=== PATIENT | female | born 1965 | race Caucasian/White ===

== ENCOUNTER 2016-08-21 15:50 | Inpatient (IN) | payer BC, OTHER ==
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
--- NOTE | ~2016-08-21 | DS ---
Discharge Summary [facility] [address] [place]. [address] NAME: NEELAM FINLEY : 65 STATUS : DIS IN PAT#: [id number] AGE: 51 ADM/REG DATE : 08/21/16 MR#: [id number] REPORT SERV DATE: 09/02/16 DICTATED BY: GODWIN DE LA CRUZ DATE: 09/01/16 REPORT STATUS : Draft TRANSCRIBED BY: MODL DATE: 09/01/16 ADMISSION DATE: 08/21/2016 DISCHARGE DATE: 09/01/2016 REASON FOR ADMISSION: Recurrent pneumonia, concern for aspiration. HISTORY OF PRESENT ILLNESS: Please refer Dr. Cooley's history and physical dated 08/02/2016 for complete details on the patient's admission. In brief, the patient was recently discharged from [facility] with a pneumonia and now rehospitalized with another pneumonia. HOSPITAL COURSE: From admission to September 20, please refer Dr. Jay Shah's discharge dictation. During that time, Dr. Shah had diagnosed with bilateral pneumonia with bacteremia secondary to aspiration and hypoxic respiratory failure which is now resolved. She also had dysphagia. She was initially scheduled for discharge on the , however we were waiting for home health and tube feeds to be arranged prior to discharge which hopefully will be done today. I assume care of this patient on the day of discharge. There were no overnight events. She will be discharged home in a stable condition. DISCHARGE DIAGNOSES: Bilateral pneumonia with bacteremia secondary to aspiration, hypoxic respiratory failure, dysphagia, severe esophageal candidiasis, history of type 2 diabetes, history of peripheral arterial disease, chronic pain management. DISCHARGE MEDICATIONS: Please refer to Dr. Pina Shah's discharge summary for complete details regarding the procedures and medications. This is Dr. Godwin De La Cruz spending over 30 minutes on discharge planning and coordination of care on Ms. Finley. ANTHONY/ALAYNA Godwin De La Cruz MD / [id number] CC: MD Landon Briscoe MD
--- NOTE | ~2016-08-21 | EGD ---
EGD REPORT [facility] [address] [place] [address] NAME: BRIT FINLEY : 65 STATUS : ADM IN PAT#: [id number] AGE: 51 ADM/REG DATE : 08/21/16 MR#: [id number] REPORT SERV DATE: 08/28/16 DICTATED BY: JENNIFER POLK DATE: 08/28/16 REPORT STATUS : Draft TRANSCRIBED BY: [employer] DATE: 08/28/16 [facility] Patient Name: Brit Finley Date of : 1965 Attending MD: JENNIFER POLK, Procedure Date No Time: 08/28/2016 Procedure: Upper GI endoscopy Indications: Dysphagia Referring MD: Landon Mueller MD Medicines: Monitored Anesthesia Care Complications: No immediate complications. Estimated blood loss: None. Procedure: Pre-Anesthesia Assessment: - ASA Grade Assessment: IV - A patient with severe systemic disease that is a constant threat to life. After obtaining informed consent, the endoscope was passed under direct vision. Throughout the procedure, the patient's blood pressure, pulse, and oxygen saturations were monitored continuously. The GIF H190 [id number] was introduced through the mouth, and advanced to the second part of duodenum. The upper GI endoscopy was accomplished without difficulty. The patient tolerated the procedure well. Findings: The esophagus was normal. The stomach was normal. The patient was placed in the supine position for PEG placement. The stomach was insufflated to appose gastric and abdominal chiu. A site was located in the body of the stomach with excellent transillumination and manual external pressure for placement. The abdominal wall was marked and prepped in a sterile manner. The area was anesthetized with 3 mL of 1% lidocaine. The trocar needle was introduced through the abdominal wall and into the stomach under direct endoscopic view. A snare was introduced through the endoscope and opened in the gastric lumen. The guide wire was passed through the trocar and into the open snare. The snare was closed around the guide wire. The endoscope and snare were removed, pulling the wire out through the mouth. A skin incision was made at the site of needle insertion. The externally removable 24 Fr EndoVive Safety gastrostomy tube was lubricated. The G-tube was passed over the guide wire through the mouth, and into the stomach. The trocar needle was removed, and the gastrostomy tube was pulled out from the stomach through the skin. The guide wire was removed, and the external bumper attached to the gastrostomy tube. The feeding tube was then cut to an appropriate length. The final position of the gastrostomy tube was confirmed by relook endoscopy, and skin marking noted to be 3 cm at the external bumper. The final tension EGD REPORT [address] [place]. [address] NAME: BIRT FINLEY : 65 STATUS : ADM IN [facility]#: [id number] AGE: 51 ADM/REG DATE : 08/21/16 MR#: [id number] REPORT SERV DATE: 08/28/16 DICTATED BY: JENNIFER POLK DATE: 08/28/16 REPORT STATUS : Draft TRANSCRIBED BY: [employer] DATE: 08/28/16 and compression of the abdominal wall by the PEG tube and external bumper were checked and revealed that the bumper was loose and not touching the skin. The feeding tube was capped, and the tube site was cleaned and dressed. The examined duodenum was normal. Impression: - Normal esophagus. - Normal stomach. - Normal examined duodenum. - An externally removable PEG placement was successfully completed. Recommendation: - Patient has a contact number available for emergencies. The signs and symptoms of potential delayed complications were discussed with the patient. Return to normal activities tomorrow. Written discharge instructions were provided to the patient. - Return to previous diet. - Continue present medications. - Please follow the post-PEG recommendations including: Nutrition consult for formula and volume. - Please follow the post-PEG recommendations including: NPO x4 hrs then water today, may use PEG today for meds and water and may use PEG tomorrow for feedings. Procedure Code(s): --- Professional --- 01051, Esophagogastroduodenoscopy, flexible, transoral; with directed placement of percutaneous gastrostomy tube Diagnosis Code(s): --- Professional --- R13.10, Dysphagia, unspecified CPT copyright 2013 [employer]. All rights reserved. The codes documented in this report are preliminary and upon bobtailer review may be revised to meet current compliance requirements. JENNIFER POLK, 08/28/2016 3:08 PM Number of Addenda: 0 Note Initiated On: 08/28/2016 11:07 AM Scope Withdrawal Time 0 hours 0 minutes 0 seconds [address] [place] [address]
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
--- NOTE | ~2016-08-21 | EGD ---
EGD REPORT [facility] [address] [place] [place] [address] NAME: BRIT FINLEY : 65 STATUS : ADM IN PAT#: [id number] AGE: 51 ADM/REG DATE : 08/21/16 MR#: [id number] REPORT SERV DATE: 08/25/16 DICTATED BY: BRANDON OLSON DATE: 08/25/16 REPORT STATUS : Draft [facility]ANSCRIBED BY: [facility] DATE: 08/25/16 [facility] Patient Name: Brit Finley Date of : 1965 Attending MD: BRANDON OLSON MD Procedure Date No Time: 08/25/2016 Procedure: Upper GI endoscopy Indications: Dysphagia Referring MD: NIEVES BREWSTER MD Medicines: Monitored Anesthesia Care Complications: No immediate complications. Estimated blood loss: Minimal. Procedure: Pre-Anesthesia Assessment: - ASA Grade Assessment: III - A patient with severe systemic disease. After obtaining informed consent, the endoscope was passed under direct vision. Throughout the procedure, the patient's blood pressure, pulse, and oxygen saturations were monitored continuously. The GIF H190 [id number] was introduced through the mouth, and advanced to the second part of duodenum. The upper GI endoscopy was accomplished without difficulty. The patient tolerated the procedure well. Findings: Moderately severe esophagitis with no bleeding was found in the entire esophagus. Cells for cytology were obtained by brushing. Estimated blood loss: none. No gross lesions were noted in the entire examined stomach. The examined duodenum was normal. The cardia and gastric fundus were normal on retroflexion. The exam was otherwise without abnormality. Impression: - Moderately severe candidiasis esophagitis. Cells for cytology obtained. - The examination was otherwise normal. - Cells for cytology were obtained. Recommendation: - Return patient to [facility] for [facility] care. - Await pathology results. - Diflucan (fluconazole) 100 mg PO daily for 3 weeks. Procedure Code(s): --- Professional --- 05915, Esophagogastroduodenoscopy, flexible, transoral; diagnostic, including collection of specimen(s) by EGD REPORT [address] [address] NAME: BRIT FINLEY : [birth year] STATUS : ADM IN [facility]#: [id number] AGE: 51 ADM/REG DATE : 08/21/16 MR#: [id number] REPORT SERV DATE: 08/25/16 DICTATED BY: BRANDON OLSON DATE: 08/25/16 REPORT STATUS : Draft TRANSCRIBED BY: [employer] DATE: 08/25/16 brushing or washing, when performed (separate procedure) Diagnosis Code(s): --- Professional --- B37.81, Candidal esophagitis R13.10, Dysphagia, unspecified CPT copyright 2013 [employer]. All rights reserved. The codes documented in this report are preliminary and upon neurology director review may be revised to meet current compliance requirements. Brandon Olson MD BRANDON OLSON MD 08/25/2016 8:39 AM This report has been signed electronically. Number of Addenda: 0 Note Initiated On: 08/25/2016 7:11 AM Scope Withdrawal Time 0 hours 0 minutes 0 seconds
[~2016-08-21 15:50] MED LIST: ASABAYER PO; AVINZA30 PO; B121000P IM; CLARIT10 PO; CLOBETASOL E0.05 % EX; CRESTOR20 MG PO; CYMBALTA60 PO; FOLIC ACID400 MC1 PO; INVOKAMET PO; LEVEMIR SC; LOFIB160 PO; MULTIPLE VIT PO; MYRBETRIQ50 MG PO; NEUR800 PO; PERCOCET1 TA4 PO; TOPXL50 PO; V5 PO; VITAMIN D2000 UNIT PO; ZANAFLEX2 MG PO; ZESTRIL20 MG PO
[2016-08-21 16:01] LABS: BASOPHILS 0.1 %; BASOPHILS ABSOLUTE 0.01 10/3/uL (0.0-0.16); EOSINOPHILS 0.1 %; EOSINOPHILS ABSOLUTE 0.01 10/3/uL (0.0-0.53); ER CBC TAT 0 Hrs 18 Mins; HEMATOCRIT 31.9 % (36.0-48.0); HEMOGLOBIN 10.7 g/dL (12.0-16.0); IMMATURE GRANULOCYTES 0.3 %; IMMATURE GRANULOCYTES ABSOLUTE 0.03 10/3/uL (0.0-0.11); LYMPHOCYTES ABSOLUTE 0.58 10/3/uL (0.67-4.30); MANUAL DIFF NO %; MEAN CORPUS HGB CONC 33.5 g/dL (32.0-36.0); MEAN CORPUSCULAR HEMOGLOB 27.4 pg (26.0-34.0); MEAN CORPUSCULAR VOLUME 81.8 fL (80-100); MEAN PLATELET VOLUME 8.8 fL (9.2-13.0); MONOCYTES 6.4 %; MONOCYTES ABSOLUTE 0.74 10/3/uL (0.21-1.20); NEUTROPHILS 88.1 %; NEUTROPHILS ABSOLUTE 10.18 10/3/uL (2.02-8.40); PLATELET COUNT 343 10/3/uL (150-400); RBC DISTRIBUTION WIDTH 16.2 % (12.0-16.0); WHITE BLOOD CELLS 11.6 10/3/uL (4.5-10.5)
[2016-08-21 16:08] LABS: BUN (BLOOD UREA NITROGEN) 9 MG/DL (6-23); CHLORIDE, SERUM 99 MMOL/L (96-112); CO2 (CARBON DIOXIDE) 25 MMOL/L (24-34); GFR AFRICAN AMERICAN 116 ML/MIN (>=60); GFR NON AFRICAN AMERICAN 100 ML/MIN (>=60); GLUCOSE, SERUM 174 MG/DL (60-99); SODIUM, SERUM 135 MMOL/L (135-148)
[2016-08-21 16:09] LABS: INFLUENZA A SCREEN NEGATIVE (NEGATIVE); INFLUENZA B SCREEN NEGATIVE (NEGATIVE)
[2016-08-21 16:10] LABS: CALCIUM, SERUM 7.7 MG/DL (8.5-10.4)
[2016-08-21 16:15] LABS: ASCORBIC ACID (UR NOT ORDER) NEG (NEG); BILIRUBIN, URINE NEGATIVE (NEG); ER URINALYSIS TAT 0 Hrs 09 Mins; KETONE, URINE NEGATIVE (NEG); LEUKOCYTE ESTERASE(NOT OR TRACE (NEG); NITRITE (URINE) NEG (NEG); WBC (NOT ORDERED) (RFLEX) 15 (0-5)
[2016-08-21 16:15] LABS: LACTATE 1.6 MMOL/L (0.3-2.4)
[2016-08-21 16:41] LABS: PROCALCITONIN 0.17 ng/mL (<0.5)
[2016-08-21] MEDS ORDERED: ZANAFLEX 4 MG TA4 MG PO (17:14)
[2016-08-21] MEDS ORDERED: SEROQUEL25 PO (17:14)
[2016-08-21] MEDS ORDERED: OSPHENA60 MG PO (17:15)
[2016-08-21] MEDS ORDERED: MOVANTIK25 MG PO (17:16)
[2016-08-21] MEDS ORDERED: COZAAR100 MG PO (17:16)
[2016-08-21] MEDS ORDERED: CRESTOR20 MG PO (17:17)
[2016-08-21] MEDS ORDERED: PULMICORT180 MCG INH (17:17)
[2016-08-21] MEDS ORDERED: TESS PO (17:17)
[2016-08-21] MEDS ORDERED: NORV5 PO (17:18)
[2016-08-21] MEDS ORDERED: CYMBALTA60 PO (17:18)
[2016-08-21] MEDS ORDERED: LOPID6 PO (17:18)
[2016-08-21] MEDS ORDERED: ATARAX50B PO (17:19)
[2016-08-21] MEDS ORDERED: ZYRTEC ALLGY10 MG PO (17:19)
[2016-08-21] MEDS ORDERED: PROAIR HFA INH (17:20)
[2016-08-21] MEDS ORDERED: ENDOCET1 TA3 PO (17:20)
[2016-08-21] MEDS ORDERED: MSCONT60 PO (17:23)
[2016-08-21] MEDS ORDERED: ASAB PO (17:23)
[2016-08-21] MEDS ORDERED: VITAMIN D31000 UNIT PO (17:24)
[2016-08-21] MEDS ORDERED: B121000P IM (17:24)
[2016-08-21] MEDS ORDERED: TEMOVATE CREAM30 GM TOP (17:24)
[2016-08-21] MEDS ORDERED: JANUMET1 TA1 PO (17:26)
[2016-08-21] MEDS ORDERED: TOUJEO SC (17:26)
[2016-08-21] MEDS ORDERED: FOLIC PO (17:26)
[2016-08-21] MEDS ORDERED: NOVOPEN SC (17:27)
[2016-08-21] MEDS ORDERED: MULTIVIT/MIN PO (17:28)
[2016-08-21] MEDS ORDERED: BEN25 PO (17:29)
[2016-08-21] MEDS ORDERED: HABIT21 TOP (17:30)
[2016-08-21] MEDS ORDERED: FLONASE NAS (17:30)
[2016-08-21] MEDS ORDERED: LEVAQUIN750 MG PO (17:32)
[2016-08-21] MEDS ORDERED: [UNRECOGNIZED DRUG - OTHER] (17:33)
[2016-08-21 20:17] LABS: TROPONIN I 0.02 NG/ML (<0.05)
[2016-08-21 21:38] LABS: B NATRIURETIC PEPTIDE (BNP) 84.2 PG/ML (< 100.0)
[2016-08-21 21:51] LABS: FREE T4 1.19 NG/DL (0.76-1.46)
[2016-08-21 22:13] LABS: GLYCOHEMOGLOBIN (HbA1c) 8.3 % (4.7-6.1)
[2016-08-22 06:54] LABS: HEMATOCRIT 28.9 % (36.0-48.0); HEMOGLOBIN 9.5 g/dL (12.0-16.0); MEAN CORPUS HGB CONC 32.9 g/dL (32.0-36.0); MEAN CORPUSCULAR VOLUME 82.1 fL (80-100); MEAN PLATELET VOLUME 8.3 fL (9.2-13.0); PLATELET COUNT 291 10/3/uL (150-400); RBC DISTRIBUTION WIDTH 16.5 % (12.0-16.0); RED CELL COUNT 3.52 10/6/uL (4.0-5.6); WHITE BLOOD CELLS 9.6 10/3/uL (4.5-10.5)
[2016-08-22 06:55] LABS: MANUAL DIFF YES %
[2016-08-22 07:09] LABS: A/G RATIO 0.5 (0.7-1.9); ALBUMIN 1.8 G/DL (3.5-5.0); ALKALINE PHOSPHATASE 85 U/L (45-117); BUN (BLOOD UREA NITROGEN) 6 MG/DL (6-23); CALCIUM, SERUM 7.7 MG/DL (8.5-10.4); CHLORIDE, SERUM 105 MMOL/L (96-112); CO2 (CARBON DIOXIDE) 26 MMOL/L (24-34); CREATININE 0.52 MG/DL (0.55-1.02); GFR AFRICAN AMERICAN 128 ML/MIN (>=60); GFR NON AFRICAN AMERICAN 111 ML/MIN (>=60); GLUCOSE, SERUM 93 MG/DL (60-99); POTASSIUM, SERUM 3.7 MMOL/L (3.5-5.3); SGOT(AST) 9 U/L (5-40); SGPT(ALT) 10 U/L (5-65); SODIUM, SERUM 140 MMOL/L (135-148); TOTAL BILIRUBIN 0.7 MG/DL (0-1.2); TOTAL PROTEIN 5.8 G/DL (6.0-8.5); TROPONIN I 0.02 NG/ML (<0.05)
[2016-08-22 07:35] LABS: ANISOCYTOSIS 1+ (5-10/OIF) (0-5/OIF); BAND NEUTROPHILS 14 %; LYMPHOCYTES 8 %; LYMPHOCYTES ABSOLUTE (CALC) 0.77 10/3/uL (0.67-4.30); MONOCYTES 4 %; MONOCYTES ABSOLUTE (CALC) 0.38 10/3/uL (0.21-1.20); NEUTROPHILS ABSOLUTE (CALC) 8.45 10/3/uL (2.02-8.40); PLATELET ESTIMATE ADQ (ADEQUATE); SEGMENTED NEUTROPHIL (0) 74 %; TOTAL NUCLEATED CELLS 100
[2016-08-25 05:07] LABS: BASOPHILS 0.2 %; BASOPHILS ABSOLUTE 0.02 10/3/uL (0.0-0.16); EOSINOPHILS 0.1 %; EOSINOPHILS ABSOLUTE 0.01 10/3/uL (0.0-0.53); HEMATOCRIT 33.5 % (36.0-48.0); HEMOGLOBIN 11.4 g/dL (12.0-16.0); IMMATURE GRANULOCYTES 0.7 %; IMMATURE GRANULOCYTES ABSOLUTE 0.08 10/3/uL (0.0-0.11); LYMPHOCYTES 34.5 %; LYMPHOCYTES ABSOLUTE 3.71 10/3/uL (0.67-4.30); MANUAL DIFF NO %; MEAN CORPUSCULAR HEMOGLOB 27.6 pg (26.0-34.0); MEAN CORPUSCULAR VOLUME 81.1 fL (80-100); MEAN PLATELET VOLUME 8.6 fL (9.2-13.0); MONOCYTES 5.9 %; MONOCYTES ABSOLUTE 0.63 10/3/uL (0.21-1.20); NEUTROPHILS 58.6 %; NEUTROPHILS ABSOLUTE 6.29 10/3/uL (2.02-8.40); PLATELET COUNT 331 10/3/uL (150-400); RBC DISTRIBUTION WIDTH 16.6 % (12.0-16.0); RED CELL COUNT 4.13 10/6/uL (4.0-5.6); WHITE BLOOD CELLS 10.7 10/3/uL (4.5-10.5)
[2016-08-25 05:10] LABS: INTERNATIONAL NORMAL RATI 1.1 UNITS (-)
[2016-08-25 05:37] LABS: BUN (BLOOD UREA NITROGEN) 7 MG/DL (6-23); CALCIUM, SERUM 8.5 MG/DL (8.5-10.4); CHLORIDE, SERUM 102 MMOL/L (96-112); CO2 (CARBON DIOXIDE) 26 MMOL/L (24-34); GFR AFRICAN AMERICAN 122 ML/MIN (>=60); GFR NON AFRICAN AMERICAN 106 ML/MIN (>=60); POTASSIUM, SERUM 3.7 MMOL/L (3.5-5.3); SODIUM, SERUM 139 MMOL/L (135-148)
[2016-08-25 05:38] LABS: GLUCOSE, SERUM 170 MG/DL (60-99)
[2016-08-25 16:17] LABS: PROCALCITONIN 0.19 ng/mL (<0.5)
[2016-08-27 21:25] LABS: CREATININE 0.3 MG/DL (0.55-1.02)
[2016-08-28 05:57] LABS: C-REACTIVE PROTEIN 5.3 MG/L (<8.0)
[2016-08-28 06:32] LABS: TOTAL BILIRUBIN 0.3 MG/DL (0-1.2); TOTAL PROTEIN 5.6 G/DL (6.0-8.5)
[2016-08-28 06:33] LABS: ALBUMIN 2.2 G/DL (3.5-5.0); DIRECT BILIRUBIN 0.1 MG/DL (0.0-0.4); FOLATE 29.7 NG/ML (>5.2); INDIRECT BILIRUBIN(NOT ORDER) 0.2 MG/DL (0.1-0.9)
[2016-08-28 18:53] LABS: HEMATOCRIT 33.7 % (36.0-48.0)
[2016-08-28 19:06] LABS: BUN (BLOOD UREA NITROGEN) 6 MG/DL (6-23); CALCIUM, SERUM 7.6 MG/DL (8.5-10.4); CHLORIDE, SERUM 107 MMOL/L (96-112); CO2 (CARBON DIOXIDE) 24 MMOL/L (24-34); CREATININE 0.43 MG/DL (0.55-1.02); GFR AFRICAN AMERICAN 136 ML/MIN (>=60); GFR NON AFRICAN AMERICAN 118 ML/MIN (>=60); GLUCOSE, SERUM 167 MG/DL (60-99); POTASSIUM, SERUM 3.3 MMOL/L (3.5-5.3); SODIUM, SERUM 142 MMOL/L (135-148)
[2016-08-30 10:41] LABS: BASOPHILS 0.1 %; BASOPHILS ABSOLUTE 0.01 10/3/uL (0.0-0.16); EOSINOPHILS 1.2 %; EOSINOPHILS ABSOLUTE 0.13 10/3/uL (0.0-0.53); HEMATOCRIT 33.2 % (36.0-48.0); IMMATURE GRANULOCYTES ABSOLUTE 0.11 10/3/uL (0.0-0.11); LYMPHOCYTES 25.4 %; LYMPHOCYTES ABSOLUTE 2.75 10/3/uL (0.67-4.30); MEAN CORPUS HGB CONC 33.1 g/dL (32.0-36.0); MEAN CORPUSCULAR HEMOGLOB 27.6 pg (26.0-34.0); MEAN CORPUSCULAR VOLUME 83.4 fL (80-100); MEAN PLATELET VOLUME 8.2 fL (9.2-13.0); MONOCYTES 3.5 %; MONOCYTES ABSOLUTE 0.38 10/3/uL (0.21-1.20); NEUTROPHILS 68.8 %; NEUTROPHILS ABSOLUTE 7.43 10/3/uL (2.02-8.40); PLATELET COUNT 398 10/3/uL (150-400); RBC DISTRIBUTION WIDTH 17.7 % (12.0-16.0); RED CELL COUNT 3.98 10/6/uL (4.0-5.6); WHITE BLOOD CELLS 10.8 10/3/uL (4.5-10.5)
[2016-08-30 10:42] LABS: MANUAL DIFF NO %
[2016-08-30 10:54] LABS: BUN (BLOOD UREA NITROGEN) 5 MG/DL (6-23); CALCIUM, SERUM 8.1 MG/DL (8.5-10.4); CHLORIDE, SERUM 104 MMOL/L (96-112); CO2 (CARBON DIOXIDE) 29 MMOL/L (24-34); CREATININE 0.41 MG/DL (0.55-1.02); GFR AFRICAN AMERICAN 139 ML/MIN (>=60); GFR NON AFRICAN AMERICAN 120 ML/MIN (>=60); GLUCOSE, SERUM 188 MG/DL (60-99); POTASSIUM, SERUM 3.5 MMOL/L (3.5-5.3); SODIUM, SERUM 142 MMOL/L (135-148)
[2016-08-31 09:39] LABS: ALDOLASE 3.9 U/L (1.2-7.6)
[2016-08-31 17:34] LABS: POTASSIUM, SERUM 3.6 MMOL/L (3.5-5.3)
[2016-09-01] MEDS ORDERED: FLUCON1 PO (09:31)
[2016-09-01] MEDS ORDERED: MSIMMR15 PO (11:53)
[2016-09-01] MEDS ORDERED: LOP25 PO (11:53)
[2016-09-02 05:36] LABS: ACH RECEPTOR BINDING AB <0.30 nmol/L (<0.31)
== END 2016-09-01 17:20 | disposition home health service (06) | DRG 871 ==
LOC: ER 15:50 → 7NO 19:53
PROVIDERS: Emergency Medicine; Hospitalist; Internal Medicine; Internal Medicine Gastroenterology; Nurse Practitioner; Nurse Practitioner Family
PROC: 0DB58ZX Excision of Esophagus, Via Natural or Artificial Opening Endoscopic, Diagnostic (ICD-10-PCS; principal; 2016-08-25 08:30)
PROC: 0DH63UZ Insertion of Feeding Device into Stomach, Percutaneous Approach (ICD-10-PCS; 2016-08-28)
DX: A41.89 Other specified sepsis (principal); J69.0 Pneumonitis due to inhalation of food and vomit; J96.91 Respiratory failure, unspecified with hypoxia; R13.12 Dysphagia, oropharyngeal phase; B37.81 Candidal esophagitis; E11.9 Type 2 diabetes mellitus without complications; J44.9 Chronic obstructive pulmonary disease, unspecified; F17.210 Nicotine dependence, cigarettes, uncomplicated; Z79.4 Long term (current) use of insulin; G89.29 Other chronic pain; R65.20 Severe sepsis without septic shock; Z88.0 Allergy status to penicillin; I73.9 Peripheral vascular disease, unspecified
CPT/HCPCS: 70544; 70547; 70553; 71010; 71250; 72156; 72157; 74000; 74230; 80048; 80053; 80061; 80076; 81001; 82085; 82140; 82306; 82533; 82550; 82607; 82746; 82962; 83036; 83519; 83605; 83735; 83880; 84132; 84145; 84439; 84443; 84484; 84703; 85014; 85018; 85025; 85610; 85652; 86140; 87040; 87070; 87077; 87150; 87186; 87205; 87210; 87449; 87641; 87804; 92611-GN; 93005; 93880; 94640; 96374; 96375; 99291; A9270-GY; A9577; C8929; C9113; J0360; J0456; J1450; J2405; J3370; Q9957

== ENCOUNTER 2016-10-08 11:43 | Emergency (ER) | payer BC, OTHER ==
[~2016-10-08 11:43] MED LIST changes: +ASAB PO; +ATARAX50B PO; +BEN25 PO; +COZAAR100 MG PO; +ENDOCET1 TA3 PO; +FLONASE NAS; +FLUCON1 PO; +FOLIC PO; +HABIT21 TOP; +JANUMET1 TA1 PO; +LEVAQUIN750 MG PO; +LOP25 PO; +LOPID6 PO; +MOVANTIK25 MG PO; +MSCONT60 PO; +MSIMMR15 PO; +MULTIVIT/MIN PO; +NORV5 PO; +NOVOPEN SC; +OSPHENA60 MG PO; +PROAIR HFA INH; +PULMICORT180 MCG INH; +SEROQUEL25 PO; +TEMOVATE CREAM30 GM TOP; +TESS PO; +TOUJEO SC; +VITAMIN D31000 UNIT PO; +ZANAFLEX 4 MG TA4 MG PO; +ZYRTEC ALLGY10 MG PO; +[UNRECOGNIZED DRUG - OTHER]
== END 2016-10-08 14:05 | disposition left against medical advice (07) ==
LOC: ER 11:43
DX: R50.9 Fever, unspecified (principal); R52 Pain, unspecified; Z53.21 Procedure and treatment not carried out due to patient leaving prior to being seen by health care provider; Z88.0 Allergy status to penicillin; Z79.82 Long term (current) use of aspirin; Z79.4 Long term (current) use of insulin; Z79.899 Other long term (current) drug therapy
CPT/HCPCS: 71020; 80053; 81001; 83605; 83690; 85025; 85610; 85730; 87040; 87804

== ENCOUNTER 2016-10-10 15:22 | Emergency (ER) | payer BC, OTHER ==
[2016-10-10 16:17] LABS: ASCORBIC ACID (UR NOT ORDER) NEG (NEG); BILIRUBIN, URINE NEGATIVE (NEG); ER URINALYSIS TAT 0 Hrs 09 Mins; KETONE, URINE NEGATIVE (NEG); LEUKOCYTE ESTERASE(NOT OR NEG (NEG); NITRITE (URINE) NEG (NEG); WBC (NOT ORDERED) (RFLEX) 1 (0-5)
[2016-10-10 16:20] LABS: BASOPHILS 0.1 %; BASOPHILS ABSOLUTE 0.01 10/3/uL (0.0-0.16); EOSINOPHILS 0.5 %; EOSINOPHILS ABSOLUTE 0.05 10/3/uL (0.0-0.53); ER CBC TAT 0 Hrs 12 Mins; HEMOGLOBIN 11.9 g/dL (12.0-16.0); IMMATURE GRANULOCYTES 0.2 %; IMMATURE GRANULOCYTES ABSOLUTE 0.02 10/3/uL (0.0-0.11); LYMPHOCYTES 42.9 %; LYMPHOCYTES ABSOLUTE 4.31 10/3/uL (0.67-4.30); MANUAL DIFF NO %; MEAN CORPUSCULAR HEMOGLOB 28.7 pg (26.0-34.0); MEAN CORPUSCULAR VOLUME 82.1 fL (80-100); MEAN PLATELET VOLUME 8.9 fL (9.2-13.0); MONOCYTES 6.7 %; MONOCYTES ABSOLUTE 0.67 10/3/uL (0.21-1.20); NEUTROPHILS 49.6 %; NEUTROPHILS ABSOLUTE 4.98 10/3/uL (2.02-8.40); PLATELET COUNT 327 10/3/uL (150-400); RBC DISTRIBUTION WIDTH 17.3 % (12.0-16.0); RED CELL COUNT 4.14 10/6/uL (4.0-5.6)
[2016-10-10 16:27] LABS: CHLORIDE, SERUM 95 MMOL/L (96-112); CO2 (CARBON DIOXIDE) 26 MMOL/L (24-34); POTASSIUM, SERUM 4.1 MMOL/L (3.5-5.3); SGPT(ALT) 12 U/L (5-65); TOTAL BILIRUBIN 0.2 MG/DL (0-1.2)
[2016-10-10 16:29] LABS: A/G RATIO 0.8 (0.7-1.9); ALBUMIN 3.4 G/DL (3.5-5.0); ALKALINE PHOSPHATASE 92 U/L (45-117); BUN (BLOOD UREA NITROGEN) 12 MG/DL (6-23); CALCIUM, SERUM 9.6 MG/DL (8.5-10.4); CREATININE 0.99 MG/DL (0.55-1.02); GFR AFRICAN AMERICAN 76 ML/MIN (>=60); GFR NON AFRICAN AMERICAN 66 ML/MIN (>=60); GLOBULIN 4.5 G/DL (2.5-4.1); GLUCOSE, SERUM 446 MG/DL (60-99); PROTIME (NOT ORD) 13.1 SEC (12.0-14.5); SGOT(AST) < 3 U/L (5-40); SODIUM, SERUM 135 MMOL/L (135-148); TOTAL PROTEIN 7.9 G/DL (6.0-8.5)
[2016-10-10 16:29] LABS: LACTATE 2.2 MMOL/L (0.3-2.4)
[2016-10-10 16:30] LABS: PARTIAL THROMBO TIME 30.3 SEC (22.5-37.2)
[2016-10-10 16:47] LABS: PROCALCITONIN 0.08 ng/mL (<0.5)
== END 2016-10-10 20:00 | disposition home or self-care (01) ==
LOC: ER 15:22
PROVIDERS: Nurse Practitioner
DX: E11.621 Type 2 diabetes mellitus with foot ulcer (principal); L97.511 Non-pressure chronic ulcer of other part of right foot limited to breakdown of skin; J44.9 Chronic obstructive pulmonary disease, unspecified; Z90.710 Acquired absence of both cervix and uterus; Z88.0 Allergy status to penicillin; Z79.82 Long term (current) use of aspirin; Z79.899 Other long term (current) drug therapy; Z79.4 Long term (current) use of insulin
CPT/HCPCS: 71010; 73630-RT; 80053; 81001; 82962; 83605; 84145; 85025; 85610; 85730; 87040; 93005; 96372; 96374; 99284; A9270-GY